=== PATIENT | male | born 2000 | race Caucasian/White ===

== ENCOUNTER 2022-01-17 19:13 | Emergency (ER) | payer SELFPAY | END 2022-01-17 21:55 | disposition home or self-care (01) | LOC: FER 19:13 | DX: S52.91XA Unspecified fracture of right forearm, initial encounter for closed fracture (principal); F17.210 Nicotine dependence, cigarettes, uncomplicated; V80.018A Animal-rider injured by fall from or being thrown from other animal in noncollision accident, initial encounter; Y93.89 Activity, other specified | CPT/HCPCS: 73110 ==